=== PATIENT | male | born 1950 | race Caucasian/White ===

== ENCOUNTER → 2016-12-06 | Outpatient (CLI) | payer BC, OTHER ==
[~2016-12-06] MED LIST: LANS30TA3 PO; MAGIC1 PO; NUTR1.5L4 PEG; NYSS/ PO; [UNRECOGNIZED DRUG - REMARK]
[2016-12-06 14:05] VITALS: BP 133/81; PULSE 76; TEMP 36.4; O2SAT 96
--- NOTE | 2016-12-06 15:06 | Radiation Oncology Follow-Up ---
Radiation Oncology Follow-Up Date of Visit Dec 06, 2016. (Marta Andrea PA-C) Reason For Visit Two-week follow-up (Marta Andrea PA-C) Radiation Completion Date 10/02/16 (Marta Andrea PA-C) Diagnosis (1) Oropharyngeal cancer Onset Date: 04/27/2016 Location: right tonsil Histology Subtype: squamous cell carcinoma Stage: ll Permanent Comment: STAGING: Right tonsil, SCC, p16 positive, [id number], stage III with close margin at primary site and extracapsular extension involving positive lymph node TREATMENT: 1. Right neck dissection - 05/23/2016 2. Right radical tonsillectomy, left tonsillectomy - 06/01/2016 3. Status post completion of radiation therapy 10/02/2016 received 6600 cGy combined with weekly Erbitux Last Edited By: Marta Andrea on Oct 15, 2016 10:27 (Marta Andrea PA-C) History of Present Illness Mr. Gonzalez is a 66-year-old gentleman with a previous smoking history who recently presented with a right neck mass. He was seen by his primary care physician who ordered a CT neck on 04/20/2016 which revealed a 2.8 cm mass in the right cervical chain at the level of the carotid bifurcation and also noted in the ill-defined low-attenuation heterogeneous mass in the region of the right palatine tonsil. He subsequently underwent an FNA guided biopsy on April 24 and then 2015 which confirmed metastatic squamous cell carcinoma. He subsequently underwent a PET CT scan which was completed on 05/09/2016 which revealed a right tonsillar mass measuring 2.6 cm in the greatest dimension with maximum SUV of 15.65 as well as a left tonsil with maximum uptake of 6.39. A right level IIA lymph node was also noted which measured 3.5 cm in the greatest dimension with maximum SUV of 13.11. The patient was seen at the multidisciplinary head and neck tumor board at [facility] and the recommendation was for a transoral robotic resection of the right tonsil, left tonsillectomy as well as a right selective neck dissection. The patient underwent the right neck dissection on 05/23/2016 with lymph nodes removed from levels 1A, 1B, 2A-5, 2B. Pathology revealed one positive lymph node in level IIA that is consistent with squamous cell carcinoma that had evidence of extracapsular extension. The patient subsequently underwent a transoral robotic surgery for a right radical tonsillectomy and left tonsillectomy on 12/2015 which revealed squamous cell carcinoma involving the right tonsil measuring 2.5 cm in the greatest dimension. Pathology revealed a close deep margin of 3 mm. We are now seeing the patient in consultation to discuss the role of adjuvant radiation therapy. The patient will be seeing Dr. Óscar Ochoa in consultation regarding the role of chemotherapy. The patient is doing relatively well overall. He has healed up well from surgery. Of note, the patient did have all of his teeth removed at [facility] due to poor dentition with anticipation of radiation therapy. Otherwise, the patient is doing well and has no complaints. Decision was to treat with combined radiation and chemotherapy. Radiation was completed 10/02/2016. He received 6600 cGy. He received weekly Erbitux. (Marta Andrea PA-C) Interim History He had been seen 2 weeks ago due to continued issues with swallowing. He has severe xerostomia. He continues to have pain with swallowing. He rates this at a level V. He is currently not taking any medication for pain. When he was seen 2 weeks ago prescription was given for Salagen to help with the xerostomia. He did fill the prescription but but did not use the medication. He has had a 3 pound weight gain since the last visit. He continues she has PEG tube and is taking nothing by mouth. His accompanies him today. She is concerned about possible sleep apnea. He seems to have positives in his breathing when sleeping at night. His energy levels continue to be low. We discussed timing laboratory studies at the last visit. He has a standing order for laboratory studies and did not have these performed. (Marta Andrea PA-C) Allergies Coded Allergies: No Known Allergies (Unverified , 09/14/16) Home Medications Miscellaneous Medications [pt states none] Review of Systems Gastrointestinal: Symptoms: WNL Oral: Other Oral Symptoms: Excessive thick saliva/plegm but dry feeling mouth; Gags easily; Respiratory: Symptoms: WNL Urinary: Symptoms: WNL Skin: Symptoms: No Problems Other Skin Symptoms: Skin of neck intact;slight schroeder color to right side of neck; (Marta Andrea PA-C) Physical Exam Vital Signs Date Time Temp Pulse Resp B/P Pulse Ox O2 Delivery O2 Flow Rate FiO2 12/06/16 14:05 36.4 76 16 133/81 96 Pain: Patient Pain Scale: 0 - 10 Initial Pain Intensity: 4.0 Fatigue: Moderate General Appearance: + mild distress, + thin Eyes: normal inspection, EOMI ENT: normal ENT inspection, hearing grossly normal, + pertinent finding (mouth reveals improvement in the mucositis of the soft and hard palate. The eschar that have been present is now nearly completely resolved. There is no white exudate. There are no open ulcerations. He is noted to have marked xerostomia. ) Neck: no adenopathy, thyroid normal Respiratory/Chest: lungs clear, no respiratory distress, no accessory muscle use Cardiovascular: regular rate, rhythm, no gallop, no murmur Extremities: no pedal edema Neurologic/Psychiatric: no motor/sensory deficits, alert, normal mood/affect Skin: warm/dry Lymphatic: no adenopathy (Marta Andrea PA-C) Assessment & Plan He was also seen and examined by Dr. Don blum. He'll be seeing Dr. Herring and a PET scan is planned for 01/02/2017. A copy of the study will be obtained for our records once completed. He seeing medical oncology on 12/12/2016. He' ll continue with the current mouth care. He had been using Biotene on a sponge swab. We asked him to return to our office in 6 months. He was instructed to use the Salagen. He was instructed to complete the laboratory studies that have been ordered. We asked him to see his primary care physician if there is concern about possible sleep apnea. (Marta Andrea PA-C) I agree with note created by Marta Andrea PA-C. I reviewed the patient's chart and information with her. I have examined and evaluated the patient. I reviewed relevant clinical information and answered the patient's and/or family' s questions. (Veeral. Ochoa MD) Total Time In Follow-Up I spent 15 minutes speaking to the patient performing examination. I spent 15 minutes reviewing information in completing this note. (Marta Andrea PA-C) I spent 15 minutes examining and counseling the patient. (Veeral. Ochoa MD) Copy To Sonia Lyle, C.R.N.P; Óscar Ochoa M.D.; Chris Herring D.O.
== END | disposition home or self-care (01) ==
LOC: C.ONC 13:41
PROVIDERS: ATTEND Radiology Radiation Oncology
DX: Z08 Encounter for follow-up examination after completed treatment for malignant neoplasm (principal); Z92.3 Personal history of irradiation; Z85.89 Personal history of malignant neoplasm of other organs and systems

== ENCOUNTER → 2017-06-13 | Outpatient (CLI) | payer BC, OTHER ==
[2016-12-06 14:05] VITALS: BP 133/81; PULSE 76
[~2017-06-13] MED LIST changes: -MAGIC1 PO
[2017-06-13 13:47] VITALS: BP 112/62; PULSE 64; TEMP 36.3; O2SAT 100
--- NOTE | 2017-06-13 16:22 | Radiation Oncology Follow-Up ---
Radiation Oncology Follow-Up Date of Visit Jun 13, 2017. Reason For Visit 6 month follow-up Radiation Completion Date 10/02/16 Diagnosis (1) Oropharyngeal cancer Status: Resolved Onset Date: 04/27/2016 Location: right tonsil Histology Subtype: squamous cell carcinoma Permanent Comment: STAGING: Right tonsil, SCC, p16 positive, [id number], stage III with close margin at primary site and extracapsular extension involving positive lymph node TREATMENT: 1. Right neck dissection - 05/23/2016 2. Right radical tonsillectomy, left tonsillectomy - 06/01/2016 3. Status post completion of radiation therapy 10/02/2016 received 6600 cGy combined with weekly Erbitux Last Edited By: Marta Andrea on Oct 15, 2016 10:27 History of Present Illness Mr. Gonzalez is a 66-year-old gentleman with a previous smoking history who recently presented with a right neck mass. He was seen by his primary care physician who ordered a CT neck on 04/20/2016 which revealed a 2.8 cm mass in the right cervical chain at the level of the carotid bifurcation and also noted in the ill-defined low-attenuation heterogeneous mass in the region of the right palatine tonsil. He subsequently underwent an FNA guided biopsy on April 24 and then 2015 which confirmed metastatic squamous cell carcinoma. He subsequently underwent a PET CT scan which was completed on 05/09/2016 which revealed a right tonsillar mass measuring 2.6 cm in the greatest dimension with maximum SUV of 15.65 as well as a left tonsil with maximum uptake of 6.39. A right level IIA lymph node was also noted which measured 3.5 cm in the greatest dimension with maximum SUV of 13.11. The patient was seen at the multidisciplinary head and neck tumor board at [facility] and the recommendation was for a transoral robotic resection of the right tonsil, left tonsillectomy as well as a right selective neck dissection. The patient underwent the right neck dissection on 05/23/2016 with lymph nodes removed from levels 1A, 1B, 2A-5, 2B. Pathology revealed one positive lymph node in level IIA that is consistent with squamous cell carcinoma that had evidence of extracapsular extension. The patient subsequently underwent a transoral robotic surgery for a right radical tonsillectomy and left tonsillectomy on 12/2015 which revealed squamous cell carcinoma involving the right tonsil measuring 2.5 cm in the greatest dimension. Pathology revealed a close deep margin of 3 mm. We are now seeing the patient in consultation to discuss the role of adjuvant radiation therapy. The patient will be seeing Dr. Óscar Ochoa in consultation regarding the role of chemotherapy. The patient is doing relatively well overall. He has healed up well from surgery. Of note, the patient did have all of his teeth removed at [facility] due to poor dentition with anticipation of radiation therapy. Otherwise, the patient is doing well and has no complaints. Decision was to treat with combined radiation and chemotherapy. Radiation was completed 10/02/2016. He received 6600 cGy. He received weekly Erbitux. Interim History The past 6 months his weight has remained stable. He continues to use the feeding tube on a regular basis. He is sipping fluids. He is beginning to try soft foods. He tried Jell-O which did not work well. He is being followed by speech therapy and is scheduled for recheck video swallow study 07/02/2017. He had a recheck PET scan 01/02/2017. The previously seen FDG avid tonsillar mass was no longer visualized. There is decreased FDG avidity and's decreased size of the right tonsillar mass. Level II right sided necrotic lymph node is no longer visualized. Mild diffuse uptake in the central portion of the esophagus goes along with the patient's recent history of mucositis. He states that he is being treated for a yeast infection and is on nystatin swish medication. He drinks water to relieve the xerostomia. He sips small amounts at a time. Allergies Coded Allergies: No Known Allergies (Unverified , 09/14/16) Home Medications Scheduled Lansoprazole (Prevacid Solutab), 30 MG PO DAILY Nutritional Supplements (Isosource 1.5 Kevin), 6 APPLN PEG DAILY Nystatin (Nystatin Suspension), 5 ML PO QID Review of Systems Gastrointestinal: Symptoms: WNL, Constipation, Diarrhea GI Comments: at times goes between diarrhea "usually i'm good though" Oral: Symptoms: Scant Saliva/Dry Mouth, Parenteral/Ent. Support Other Oral Symptoms: Currently being treated for thrush, Swallowing Rehab Jul 2017 Respiratory: Symptoms: WNL Urinary: Symptoms: WNL Skin: Symptoms: No Problems Other Skin Symptoms: Skin of neck intact;slight schroeder color to right side of neck; Physical Exam Vital Signs Date Time Temp Pulse Resp B/P (MAP) Pulse Ox O2 Delivery O2 Flow Rate FiO2 06/13/17 13:47 36.3 64 18 112/62 100 Pain: Patient Pain Scale: 0 - 10 Initial Pain Intensity: 4.0 General Appearance: no apparent distress Eyes: normal inspection ENT: hearing grossly normal, + pertinent finding (mouth reveals mild dehydration. No trismus. The dry exudate previously seen on the tongue and palate is steadily improving. There are no ulcerations or mucositis.) Neck: supple, no adenopathy Respiratory/Chest: lungs clear, no respiratory distress, no accessory muscle use Cardiovascular: regular rate, rhythm, no gallop, no murmur Extremities: no pedal edema Neurologic/Psychiatric: no motor/sensory deficits, alert, normal mood/affect Skin: warm/dry, no rash Additional Studies PET scan as reviewed above. Assessment & Plan Plan: Continue regular follow-up with his primary care provider, medical oncology, and ENT. He'll be having a video swallow study 07/02/2017. He has been receiving physical therapy for his neck. He'll continue with speech therapy. He continues to use the tube feedings. He'll be steadily increasing oral intake as instructed by speech therapy. We asked him to return to our office in 6 months. He called [facility] questions or concerns in the interim. Total Time In Follow-Up I spent 20 minutes speaking to the patient and performing examination. I spent 15 minutes reviewing information and completing this note. Copy To Sonia Lyle C.R.N.P; Óscar Ochoa M.D.; Chris Herring D.O.
== END | disposition home or self-care (01) ==
LOC: C.ONC 13:43
PROVIDERS: ATTEND Physician Assistant Medical
DX: Z08 Encounter for follow-up examination after completed treatment for malignant neoplasm (principal); Z92.3 Personal history of irradiation; Z85.818 Personal history of malignant neoplasm of other sites of lip, oral cavity, and pharynx

== ENCOUNTER → 2017-12-17 | Outpatient (CLI) | payer BC, OTHER ==
[~2017-12-17] MED LIST changes: -[UNRECOGNIZED DRUG - REMARK]
[2017-12-17 13:33] VITALS: BP 130/76; PULSE 59; TEMP 36.6; O2SAT 98
--- NOTE | 2017-12-18 07:53 | Radiation Oncology Follow-Up ---
Radiation Oncology Follow-Up Date of Visit Dec 17, 2017. Reason For Visit 6 month follow-up Radiation Completion Date 2015 Diagnosis (1) Oropharyngeal cancer Status: Resolved Onset Date: 04/27/2016 Location: right tonsil Histology Subtype: squamous cell carcinoma Stage: lll Permanent Comment: STAGING: Right tonsil, SCC, p16 positive, [id number], stage III with close margin at primary site and extracapsular extension involving positive lymph node TREATMENT: 1. Right neck dissection - 05/23/2016 2. Right radical tonsillectomy, left tonsillectomy - 06/01/2016 3. Status post completion of radiation therapy 10/02/2016 received 6600 cGy combined with weekly Erbitux Last Edited By: Marta Andrea on Oct 15, 2016 10:27 History of Present Illness Mr. Gonzalez was a previous smoking history who presented with a right neck mass. He was seen by his primary care physician who ordered a CT neck on 04/20/2016 which revealed a 2.8 cm mass in the right cervical chain at the level of the carotid bifurcation and also noted in the ill-defined low-attenuation heterogeneous mass in the region of the right palatine tonsil. He subsequently underwent an FNA guided biopsy on April 24 and then 2015 which confirmed metastatic squamous cell carcinoma. He subsequently underwent a PET CT scan which was completed on 05/09/2016 which revealed a right tonsillar mass measuring 2.6 cm in the greatest dimension with maximum SUV of 15.65 as well as a left tonsil with maximum uptake of 6.39. A right level IIA lymph node was also noted which measured 3.5 cm in the greatest dimension with maximum SUV of 13.11. The patient was seen at the multidisciplinary head and neck tumor board at [facility] [address] and the recommendation was for a transoral robotic resection of the right tonsil, left tonsillectomy as well as a right selective neck dissection. The patient underwent the right neck dissection on 05/23/2016 with lymph nodes removed from levels 1A, 1B, 2A-5, 2B. Pathology revealed one positive lymph node in level IIA that is consistent with squamous cell carcinoma that had evidence of extracapsular extension. The patient subsequently underwent a transoral robotic surgery for a right radical tonsillectomy and left tonsillectomy on 06/01/2016 which revealed squamous cell carcinoma involving the right tonsil measuring 2.5 cm in the greatest dimension. Pathology revealed a close deep margin of 3 mm. We are now seeing the patient in consultation to discuss the role of adjuvant radiation therapy. The patient will be seeing Dr. Óscar Ochoa in consultation regarding the role of chemotherapy. The patient is doing relatively well overall. He has healed up well from surgery. Of note, the patient did have all of his teeth removed at [facility] [address] due to poor dentition with anticipation of radiation therapy. Otherwise, the patient is doing well and has no complaints. Decision was to treat with combined radiation and chemotherapy. Radiation was completed 10/02/2016. He received 6600 cGy. He received weekly Erbitux. Interim History Past 6 months he had improvement in the oral intake. He is now taking everything by mouth. The PEG tube was removed 11/11/2017. He has been fitted for dentures and these are now being made. He completed physical therapy for range of motion of the neck. This did greatly improved with the treatment. He continues to have xerostomia. He also has very little taste. He denies any dysphagia. He does have some difficulty at times with swallowing. This is unpredictable. He'll have difficulty and then we will then again have trouble with swallowing. It is not related to any particular type of food. When he was seen by Dr. Herring in November there was no signs of any recurrence. He completed an NPL examination. His weight is stable. Allergies Coded Allergies: No Known Allergies (Unverified , 09/14/16) Review of Systems Gastrointestinal: Symptoms: WNL GI Comments: at times goes between diarrhea "usually i'm good though" Oral: Symptoms: Scant Saliva/Dry Mouth Other Oral Symptoms: Currently being treated for thrush, Swallowing Rehab Jul 2017 Respiratory: Symptoms: Dry Cough Respiratory Comments: cough for last week or so Urinary: Symptoms: WNL Skin: Symptoms: No Problems Other Skin Symptoms: Skin of neck intact;slight schroeder color to right side of neck; Physical Exam Vital Signs Date Time Temp Pulse Resp B/P (MAP) Pulse Ox O2 Delivery O2 Flow Rate FiO2 12/17/17 13:33 36.6 59 20 130/76 98 Fatigue: None General Appearance: no apparent distress Eyes: normal inspection ENT: normal ENT inspection, hearing grossly normal, + pertinent finding ( trismus. Xerostomia is noted. He also has telangiectasia of the hard and soft palate. There are no visible lesions of the tongue floor the mouth or buccal mucosa. No visible lesions in the oral pharynx.) Neck: supple, + pertinent finding (posttreatment changes are noted of the right neck. There is slight firmness. Slight decreased range of motion from side to side of the neck. No distinct palpable lymphadenopathy.) Respiratory/Chest: lungs clear, no respiratory distress, no accessory muscle use Cardiovascular: regular rate, rhythm, no gallop, no murmur Abdomen: non tender, soft Extremities: no pedal edema Neurologic/Psychiatric: no motor/sensory deficits, alert, normal mood/affect Skin: warm/dry Pain Management Patient Reports Pain: No Pain Location: None Patient Preferred Pain Scale: 0 - 10 Initial Pain Intensity: 0.0 Pain Management Plan He denied pain therefore requires no pain management. Laboratory Laboratory Results: not applicable Pathology Pathology Results: not applicable Imaging Imaging Studies: not applicable Assessment & Plan Plan: Patient was seen and examined by Dr. Ochoa. He'll continue the products that he has been using for the xerostomia. He'll be receiving his dentures which are currently being made. This helped that he'll have less difficulty with swallowing. Continue follow-up with ENT, medical oncology and his primary care provider. We asked him to return to our office in 6 months. He may call our office if he has any questions or concerns in the interim. Assessment & Plan (Attending) ADDENDUM: I agree with note created by Marta Andrea PA-C. I reviewed the patient's chart and information with her. I have examined and evaluated the patient. I reviewed relevant clinical information and answered the patient's and /or family's questions. HIDE WORKER Total Time In Follow-Up I spent 20 minutes speaking to the patient performing examination. I spent 15 minutes reviewing information in completing this note. AK Total Time (Attending) In Follow-Up I spent 15 minutes examining and counseling the patient. HIDE WORKER Copy To Sonia Lyle, Ida; Óscar Ochoa M.D.; Chris Herring D.O.
== END | disposition home or self-care (01) ==
LOC: C.ONC 13:16
PROVIDERS: ATTEND Physician Assistant Medical
DX: Z08 Encounter for follow-up examination after completed treatment for malignant neoplasm (principal); Z92.3 Personal history of irradiation; Z85.818 Personal history of malignant neoplasm of other sites of lip, oral cavity, and pharynx